=== PATIENT | male | born 1990 ===

== ENCOUNTER 2024-09-23 10:49 | Outpatient (CLI) | payer OTHER, SELFPAY | END 2024-09-23 10:50 | disposition home or self-care (01) | PROVIDERS: PCP Emergency Medicine; Visit Provider Emergency Medicine | DX: E78.1 Pure hyperglyceridemia (principal); Z83.3 Family history of diabetes mellitus; Z13.1 Encounter for screening for diabetes mellitus | CPT/HCPCS: 80061; 82947 ==